=== PATIENT | male | born 1950 | race Caucasian/White ===

== ENCOUNTER 2020-10-19 19:15 | Emergency (ER) | payer OTHER, BC ==
[2020-10-19 19:26] VITALS: BP 137/92; PULSE 81; TEMP 99.1; BMI 24.4
[2020-10-19 20:00] LABS: BASO % 0.9 % (0-2.0); EOS % 2.1 % (0-4.5); HEMATOCRIT 45.1 % (35.4-49); HEMOGLOBIN 15.6 GM/dl (11.7-16.9); LYMPH % 17.4 % (8-40); MCH 33.5 pg (25.7-33.7); MCHC 34.6 g/dl (32.0-35.9); MEAN CELL VOLUME 96.8 fl (80-96); MEAN PLT VOLUME 8.1 fl (7.5-11.1); MONO % 9.4 % (3.8-10.2); NEUT % 70.2 % (42.8-82.8); PLATELET COUNT 239 K/MM3 (134-434); RBC 4.66 M/mm3 (4.00-5.60); WHITE BLOOD COUNT 9.4 K/mm3 (4.0-10.8)
[2020-10-19 20:12] LABS: ALBUMIN 4.5 g/dl (3.4-5.0); BILIRUBIN,TOTAL 1.8 mg/dl (0.2-1); CALCIUM 9.1 mg/dl (8.5-10); CREATININE 1.6 mg/dl (0.55-1.3); TOT PROT 7.1 g/dl (6.4-8.2)
[2020-10-19] MEDS ORDERED: NAPROXEN 375 MG TABLET PO ONE (21:23)
[2020-10-19] MEDS ORDERED: NAPROXEN 375 MG TABLET ONE (21:24)
== END 2020-10-19 22:26 | disposition home or self-care (01) ==
LOC: FER 19:15
DX: N20.0 Calculus of kidney (principal)
CPT/HCPCS: 36415; 74176-TC; 80053; 81003; 85025; 87086; 99284-25

== ENCOUNTER 2020-10-26 04:17 | Day surgery (SDC) | payer OTHER, BC ==
[2020-10-22 16:18] VITALS: BMI 24.4
[2020-10-26] MEDS ORDERED: MIDAZOLAM HCL 2 MG/2 ML SINGLE DOSE VIAL ONE ×2 (12:03→12:12)
[2020-10-26 15:55] VITALS: BP 158/86; PULSE 66; TEMP 97.2
== END 2020-10-26 14:05 | disposition home or self-care (01) ==
LOC: JASU-SURG 04:17
PROVIDERS: ATTEND Urology
PROC: 0TF4XZZ Fragmentation in Left Kidney Pelvis, External Approach (ICD-10-PCS; principal; 2020-10-26 11:45)
DX: N20.0 Calculus of kidney (principal)

== ENCOUNTER 2020-11-21 15:03 | Emergency (ER) | payer OTHER, BC ==
[2020-11-21 15:17] VITALS: BP 136/94; PULSE 92; TEMP 99.2; BMI 24.4
== END 2020-11-21 15:33 | disposition home or self-care (01) ==
LOC: FER 15:03
DX: S40.022A Contusion of left upper arm, initial encounter (principal)
CPT/HCPCS: 99283-25

== ENCOUNTER 2022-05-08 19:43 | Inpatient (IN) | payer OTHER, BC ==
[2022-05-08 19:55] VITALS: BMI 24.4
[2022-05-08 20:29] LABS: HEMATOCRIT 44.2 % (35.4-49); HEMOGLOBIN 16.1 G/dL (11.7-16.9); MCH 35.5 pg (25.7-33.7); MCHC 36.3 g/dl (32.0-35.9); MEAN CELL VOLUME 97.5 fl (80-96); MEAN PLT VOLUME 7.5 fl (7.5-11.1); PLATELET COUNT 248.4 10^3/uL (134-434); RBC 4.53 10^6/uL (4.00-5.60); RDW 13.4 % (11.9-15.9)
[2022-05-08 20:41] LABS: INR 1.04 (0.83-1.09)
[2022-05-08 20:48] LABS: ALBUMIN 4.5 g/dl (3.4-5.0); BILIRUBIN,TOTAL 1.5 mg/dl (0.2-1); CALCIUM 9.3 mg/dl (8.5-10); CREATININE 0.9 mg/dl (0.55-1.3); TOT PROT 7.3 g/dl (6.4-8.2)
[2022-05-08] MEDS ORDERED: SODIUM CHLORIDE 1,000 ML IV ONE ×2 (21:06→23:02)
[2022-05-08] MEDS ORDERED: PIPERACILLIN/TAZOB 4.5 GM 4.5 GM in DEXTROSE 5%-WATER 100 ML IVPB ONE (22:11)
[2022-05-08] MEDS ORDERED: PIPERACILLIN/TAZOBACTAM 4.5 GM VIAL IVPB ONE (22:17)
[2022-05-09] MEDS ORDERED: SODIUM CHLORIDE 1,000 ML IV SCH (04:15)
[2022-05-09] MEDS: SODIUM CHLORIDE 1,000 ML IV SCH (07:10)
[2022-05-09] MEDS ORDERED: PIPERACILLIN/TAZOB 4.5 GM 4.5 GM in DEXTROSE 5%-WATER 100 ML IVPB SCH (10:00)
[2022-05-09] MEDS ORDERED: CEFTRIAXONE 1 GM in DEXTROSE 5%-WATER - 50 ML IVPB SCH (10:00)
[2022-05-09 10:38] LABS: BASO % 0.1 % (0-2.0); EOS % 0.1 % (0-4.5); HEMATOCRIT 38.6 % (35.4-49); HEMOGLOBIN 13.5 GM/dL (11.7-16.9); MCH 33.8 pg (25.7-33.7); MEAN CELL VOLUME 96.8 fl (80-96); MEAN PLT VOLUME 7.3 fl (7.5-11.1); MONO % 4.5 % (3.8-10.2); NEUT % 89.3 % (42.8-82.8); PLATELET COUNT 218 10^3/uL (134-434); RBC 3.99 M/mm3 (4.00-5.60); RDW 13.2 % (11.9-15.9); WHITE BLOOD COUNT 11.6 K/mm3 (4.0-10.0)
[2022-05-09] MEDS: QUINAPRIL HCL 20 MG TABLET PO SCH (10:38)
[2022-05-09 10:40] LABS: INR 1.26 (0.83-1.09); PROTHROMBIN TIME (PATIENT) 14.5 SEC (9.7-13.0)
[2022-05-09 11:09] LABS: CHOLESTEROL 108 mg/dL (50-200); TRIGLYCERIDES 33 mg/dL (0-150)
[2022-05-09 11:10] LABS: CALCIUM 8.7 mg/dL (8.5-10.1); LDL CHOLESTEROL (ONLY SJRH) 36 mg/dL (5-100)
[2022-05-09 11:12] LABS: ALBUMIN 3.4 g/dl (3.4-5.0); HDL CHOLESTEROL 68 mg/dL (40-60); MAGNESIUM 1.7 mg/dL (1.8-2.4)
[2022-05-09 11:14] LABS: CREATININE 0.8 mg/dL (0.55-1.3); PHOSPHOROUS 2.5 mg/dL (2.5-4.9)
[2022-05-09 11:15] LABS: BILIRUBIN,TOTAL 1.8 mg/dL (0.2-1)
[2022-05-09] MEDS: PIPERACILLIN/TAZOB 4.5 GM 4.5 GM in DEXTROSE 5%-WATER 100 ML IVPB SCH (17:37)
[2022-05-09] MEDS ORDERED: ACETAMINOPHEN 1000 MG/100 ML BAG IVPB ONE (19:23)
[2022-05-10] MEDS ORDERED: ACETAMINOPHEN 1000 MG/100 ML BAG IVPB ONE (01:30)
[2022-05-10] MEDS: PIPERACILLIN/TAZOB 4.5 GM 4.5 GM in DEXTROSE 5%-WATER 100 ML IVPB SCH ×3 (02:18→18:54)
[2022-05-10] MEDS: QUINAPRIL HCL 20 MG TABLET PO SCH (09:20)
[2022-05-10 10:58] LABS: BASO % 0.2 % (0-2.0); EOS % 0.6 % (0-4.5); HEMATOCRIT 35.8 % (35.4-49); HEMOGLOBIN 12.5 GM/dL (11.7-16.9); LYMPH % 6.8 % (8-40); MCH 34.1 pg (25.7-33.7); MEAN CELL VOLUME 97.6 fl (80-96); MEAN PLT VOLUME 8.1 fl (7.5-11.1); MONO % 5.8 % (3.8-10.2); NEUT % 86.6 % (42.8-82.8); PLATELET COUNT 213 10^3/uL (134-434); RBC 3.67 M/mm3 (4.00-5.60); RDW 13.2 % (11.9-15.9); WHITE BLOOD COUNT 9.4 K/mm3 (4.0-10.0)
[2022-05-10 11:13] LABS: BLOOD UREA NITROGEN 15.7 mg/dL (7-18); CALCIUM 8.3 mg/dL (8.5-10.1)
[2022-05-10 11:17] LABS: CREATININE 0.8 mg/dL (0.55-1.3); PHOSPHOROUS 1.8 mg/dL (2.5-4.9)
[2022-05-10 11:19] LABS: BILIRUBIN,TOTAL 2.2 mg/dL (0.2-1); TOT PROT 5.8 g/dl (6.4-8.2)
[2022-05-10] MEDS: SODIUM CHLORIDE 1,000 ML IV SCH (14:15)
[2022-05-10] MEDS ORDERED: POTASSIUM PHOSPHATE 30 MM in SODIUM CHLORIDE 500 ML IVPB ONE (16:00)
[2022-05-11] MEDS: PIPERACILLIN/TAZOB 4.5 GM 4.5 GM in DEXTROSE 5%-WATER 100 ML IVPB SCH ×3 (01:36→17:30)
[2022-05-11] MEDS: QUINAPRIL HCL 20 MG TABLET PO SCH (09:25)
[2022-05-11] MEDS: ENOXAPARIN NA (PORCINE) 40 MG/0.4 ML DISP.SYRIN SQ SCH (09:25)
[2022-05-11 10:26] LABS: BASO % 0.3 % (0-2.0); EOS % 0.8 % (0-4.5); HEMOGLOBIN 13.3 GM/dL (11.7-16.9); LYMPH % 10.3 % (8-40); MCH 33.1 pg (25.7-33.7); MEAN CELL VOLUME 97.3 fl (80-96); MONO % 7.3 % (3.8-10.2); NEUT % 81.3 % (42.8-82.8); PLATELET COUNT 252 10^3/uL (134-434); RBC 4.01 M/mm3 (4.00-5.60); WHITE BLOOD COUNT 7.5 K/mm3 (4.0-10.0)
[2022-05-11 10:54] LABS: ALBUMIN 3.1 g/dl (3.4-5.0); BLOOD UREA NITROGEN 18.9 mg/dL (7-18)
[2022-05-11 10:56] LABS: CALCIUM 8.7 mg/dL (8.5-10.1)
[2022-05-11 10:57] LABS: BILIRUBIN,TOTAL 1.4 mg/dL (0.2-1); CREATININE 0.8 mg/dL (0.55-1.3); PHOSPHOROUS 2.2 mg/dL (2.5-4.9); TOT PROT 6.3 g/dl (6.4-8.2)
[2022-05-11] MEDS ORDERED: POTASSIUM PHOSPHATE 15 MM in SODIUM CHLORIDE 250 ML IVPB ONE (14:08)
[2022-05-11] MEDS: SODIUM CHLORIDE 1,000 ML IV SCH (15:34)
[2022-05-12] MEDS ORDERED: PIPERACILLIN/TAZOBACTAM 4.5 GM VIAL IVPB ONE ×2 (01:19→17:22)
[2022-05-12] MEDS: PIPERACILLIN/TAZOB 4.5 GM 4.5 GM in DEXTROSE 5%-WATER 100 ML IVPB SCH ×3 (01:25→17:43)
[2022-05-12] MEDS: SODIUM CHLORIDE 1,000 ML IV SCH ×3 (07:35→20:22)
[2022-05-12 10:30] LABS: BASO % 0.5 % (0-2.0); EOS % 1.5 % (0-4.5); HEMATOCRIT 37.7 % (35.4-49); HEMOGLOBIN 12.8 GM/dL (11.7-16.9); LYMPH % 18.4 % (8-40); MCH 33.2 pg (25.7-33.7); MCHC 33.8 g/dl (32.0-35.9); MEAN PLT VOLUME 7.6 fl (7.5-11.1); NEUT % 67.6 % (42.8-82.8); PLATELET COUNT 244 10^3/uL (134-434); RBC 3.85 M/mm3 (4.00-5.60); RDW 12.8 % (11.9-15.9)
[2022-05-12] MEDS ORDERED: POTASSIUM PHOSPHATE 15 MM in SODIUM CHLORIDE 250 ML IVPB ONE (10:30)
[2022-05-12 10:52] LABS: CALCIUM 8.7 mg/dL (8.5-10.1)
[2022-05-12 10:53] LABS: BLOOD UREA NITROGEN 17.4 mg/dL (7-18)
[2022-05-12 10:55] LABS: CREATININE 0.8 mg/dL (0.55-1.3); PHOSPHOROUS 2.5 mg/dL (2.5-4.9)
[2022-05-12] MEDS: ENOXAPARIN NA (PORCINE) 40 MG/0.4 ML DISP.SYRIN SQ SCH (11:06)
[2022-05-12] MEDS: QUINAPRIL HCL 20 MG TABLET PO SCH (11:10)
[2022-05-13] MEDS: PIPERACILLIN/TAZOB 4.5 GM 4.5 GM in DEXTROSE 5%-WATER 100 ML IVPB SCH ×3 (01:31→18:08)
[2022-05-13] MEDS: SODIUM CHLORIDE 1,000 ML IV SCH ×3 (05:33→18:07)
[2022-05-13] MEDS: QUINAPRIL HCL 20 MG TABLET PO SCH (09:46)
[2022-05-13] MEDS: ENOXAPARIN NA (PORCINE) 40 MG/0.4 ML DISP.SYRIN SQ SCH ×2 (09:46→09:49)
[2022-05-13 12:25] LABS: BASO % 0.5 % (0-2.0); EOS % 1.6 % (0-4.5); HEMATOCRIT 37.8 % (35.4-49); HEMOGLOBIN 12.9 GM/dL (11.7-16.9); LYMPH % 22.4 % (8-40); MCHC 34.2 g/dl (32.0-35.9); MEAN CELL VOLUME 96.6 fl (80-96); NEUT % 62.5 % (42.8-82.8); PLATELET COUNT 279 10^3/uL (134-434); RBC 3.91 M/mm3 (4.00-5.60); RDW 12.6 % (11.9-15.9); WHITE BLOOD COUNT 4.2 K/mm3 (4.0-10.0)
[2022-05-13 12:44] LABS: CALCIUM 8.3 mg/dL (8.5-10.1)
[2022-05-13 12:46] LABS: BLOOD UREA NITROGEN 13.1 mg/dL (7-18); MAGNESIUM 1.9 mg/dL (1.8-2.4)
[2022-05-13 12:48] LABS: CREATININE 0.8 mg/dL (0.55-1.3); PHOSPHOROUS 2.1 mg/dL (2.5-4.9)
[2022-05-13 12:49] LABS: BILIRUBIN,TOTAL 0.9 mg/dL (0.2-1)
[2022-05-14] MEDS: PIPERACILLIN/TAZOB 4.5 GM 4.5 GM in DEXTROSE 5%-WATER 100 ML IVPB SCH ×2 (01:06→10:37)
[2022-05-14] MEDS: SODIUM CHLORIDE 1,000 ML IV SCH ×2 (02:09→08:49)
[2022-05-14 08:42] VITALS: BP 146/81; PULSE 57; RESP 19; TEMP 98.6
[2022-05-14] MEDS: ENOXAPARIN NA (PORCINE) 40 MG/0.4 ML DISP.SYRIN SQ SCH (09:13)
[2022-05-14] MEDS: QUINAPRIL HCL 20 MG TABLET PO SCH (09:13)
[2022-05-14] MEDS ORDERED: NAPH,MB-DB/K PH,MBDB POWDER PACKET PO ONE (11:54)
[2022-05-14] MEDS ORDERED: POTASSIUM CHLORIDE TABS 20 MEQ TABLET.ER (FP) PO ONE (11:54)
== END 2022-05-14 14:01 | disposition home or self-care (01) | DRG 392 ==
LOC: FER 19:43 → J6S 05-09 01:50 → J5S 05-13 11:58
PROVIDERS: ADMIT Surgery; ATTEND Internal Medicine
DX: K57.20 Diverticulitis of large intestine with perforation and abscess without bleeding (principal); N13.2 Hydronephrosis with renal and ureteral calculous obstruction; I10 Essential (primary) hypertension; E86.9 Volume depletion, unspecified; D72.829 Elevated white blood cell count, unspecified; R50.9 Fever, unspecified
CPT/HCPCS: 0241U-QW; 36415; 71045-TC-FY; 74177-TC; 80053; 80061; 81003; 82607; 83735; 84100; 85025; 85027; 85610; 85730; 86140; 86850; 86900; 86901; 87040; 93005; 97116-GP; 97161-GP; 99285-25; Q9967

== ENCOUNTER 2022-09-25 05:22 | Inpatient (IN) | payer OTHER, BC ==
[2022-09-22 08:50] VITALS: BMI 53.8
[~2022-09-25 05:22] MED LIST: BUPIVACAINE HCL/PF 0.25% (2.5MG/ML) 10 ML VIAL IJ ONE
[2022-09-25] MEDS ORDERED: BUPIVACAINE HCL/PF 0.25% (2.5MG/ML) 10 ML VIAL ONE ×2 (10:48→10:49)
[2022-09-25] MEDS ORDERED: ROCURONIUM BROMIDE 50 MG/5 ML SYRINGE ONE ×2 (12:11→14:40)
[2022-09-25] MEDS ORDERED: PROPOFOL 20 ML ONE ×2 (12:11→12:12)
[2022-09-25] MEDS ORDERED: MIDAZOLAM HCL 2 MG/2 ML SINGLE DOSE VIAL ONE (12:12)
[2022-09-25] MEDS ORDERED: ceFAZolin SODIUM 1 GM VIAL IVPB ONE (12:40)
[2022-09-25] MEDS ORDERED: BUPIVACAINE HCL/PF 0.25% (2.5MG/ML) 10 ML VIAL IJ ONE (12:51)
[2022-09-25] MEDS ORDERED: HEPARIN NA (PORCINE) 5,000 UNITS/ML 1ML VIAL ONE (13:05)
[2022-09-25] MEDS ORDERED: SUGAMMADEX SODIUM 200 MG/2 ML VIAL ONE (13:43)
[2022-09-25] MEDS ORDERED: NEOSTIGMINE METHYLSULFATE 0.5 MG/1 ML - 10 ML MDV ONE (13:45)
[2022-09-25] MEDS ORDERED: IBUPROFEN 800 MG/8 ML IJ IVPB PRN (14:38)
[2022-09-25] MEDS ORDERED: PROMETHAZINE HCL 25 MG/1 ML VIAL IVPB PRN (14:38)
[2022-09-25 15:45] VITALS: TEMP 97.5
[2022-09-25 16:15] VITALS: RESP 18
[2022-09-25] MEDS ORDERED: ACETAMINOPHEN 1000 MG/100 ML BAG IVPB ONE (17:00)
[2022-09-25 17:42] VITALS: BP 126/75; PULSE 66
== END 2022-09-25 18:00 | disposition home or self-care (01) | DRG 352 ==
LOC: J2C 05:22 → EDSTATUS 14:24
PROVIDERS: ADMIT Surgery; ATTEND Surgery
PROC: 8E0W4CZ Robotic Assisted Procedure of Trunk Region, Percutaneous Endoscopic Approach (ICD-10-PCS; 2022-09-25)
PROC: 0YU64JZ Supplement Left Inguinal Region with Synthetic Substitute, Percutaneous Endoscopic Approach (ICD-10-PCS; principal; 2022-09-25 12:00)
DX: K40.90 Unilateral inguinal hernia, without obstruction or gangrene, not specified as recurrent (principal); I10 Essential (primary) hypertension
CPT/HCPCS: 94760; C1781; J1644